=== PATIENT | female | born 1995 | race Two or more races ===

== ENCOUNTER 2021-08-17 16:26 | Emergency (ER) | payer OTHER ==
[~2021-08-17] VITALS: Ht 170.2 cm; Wt 63.5 kg
[2021-08-17] MEDS ORDERED: ZITHROMAX500 MG PO (20:47)
== END 2021-08-17 20:56 | disposition home or self-care (01) ==
LOC: ER 16:26
DX: A49.3 Mycoplasma infection, unspecified site (principal); J06.9 Acute upper respiratory infection, unspecified; Z20.822 Contact with and (suspected) exposure to COVID-19